=== PATIENT | female | born 1970 | race Caucasian/White ===

== ENCOUNTER 2021-02-11 09:05 | Emergency (ER) | payer MEDICARE, MEDICAID, SELFPAY ==
[2021-02-11] VITALS (17 sets, daily range): BP systolic 126–184; BP diastolic 53–97; PULSE 57–82; RESP 12–20; TEMP 36.5–36.6; O2SAT 76–99; BMI 38.9
--- NOTE | 2021-02-11 09:20 | PC.NURSE ---
SI PRECAUTIONS, SITTER AT BEDSIDE.
[2021-02-11 10:15] LABS: Basophils % 0.5 % (0.1-2.0); Eosinophils % 0.3 % (0.1-12.0); Neutrophils # 0.3 K/mm3 (1.8-7.8); Red Blood Count 5.24 M/mm3 (4.20-5.40); Red Cell Distribution Width 14.8 % (11.5-17.5)
[2021-02-11 10:22] LABS: Chloride 105 mmol/L (98-107); Potassium 3.6 mmoL/L (3.5-5.1); Sodium 137 mmol/L (136-145)
[2021-02-11 10:24] LABS: Blood Urea Nitrogen 11 mg/dl (7-17); Creatinine Clearance Estimated 179 mL/min (50-200); Estimated Glomerular Filt Rate 106 ml/min (>60); GFR (African American) 129 ML/MIN (>60)
[2021-02-11 10:25] LABS: Alanine Aminotransferase 29 U/L (12-78); Albumin Level 3.8 g/dl (3.5-5.0); Albumin/Globulin Ratio 1.1 (1.1-1.8); Alkaline Phosphatase 145 U/L (38-126); Anion Gap 9.6 mEq/L (5-15); Aspartate Amino Transferase 42 U/L (14-36); Bilirubin,Total 0.5 mg/dl (0.2-1.3); Carbon Dioxide 26 mmol/L (22.0-30.0); Globulin 3.6 g/dL (1.3-3.2); Glucose 127 mg/dl (74-100); Total Protein,Serum 7.4 g/dl (6.3-8.2)
[2021-02-11 10:34] LABS: Hematocrit 45.3 % (37.0-47.0); Lymphocytes # 2.3 K/mm3 (0.7-4.5); Lymphocytes % 33.1 % (10-50); Mean Corpuscular Hemoglobin 28.6 pg (27.0-31.2); Mean Corpuscular Volume 86.4 fl (81-99); Mean Platelet Volume 9.4 fl (7.4-10.4); Monocytes # 4.4 K/mm3 (0.1-1.0); Monocytes % 62.2 % (1.7-9.3); Platelet Count 184 K/mm3 (142-424)
[2021-02-11 10:36] LABS: MANUAL DIFFERENTIAL MANUAL DIFFERENTIAL (MANUAL DIFF); Neutrophils % 3.9 % (37.0-80.0)
[2021-02-11 10:41] LABS: Acetaminophen < 10 ug/ml (10-30); Salicylate < 1.0 mg/dL (2.0-20.0)
[2021-02-11 10:47] LABS: Eosinophils % 2 % (0-3); Lymphocytes % 22 % (10-50); Monocytes % 3 % (2-9); Neutrophils % 73 % (42-76); Platelet Estimate Normal; RBC Morphology Normal; Total Cells Counted 100
--- NOTE | 2021-02-11 10:54 | PC.NURSE ---
PT RESTING IN BED, PT APPEARS LESS AGITATED. INFORMED PT OF NEED OF URINE SAMPLE, SHE STATES SHE'S UNABLE TO GO RIGHT NOW.
--- NOTE | 2021-02-11 10:56 | [facility].EDPSYCH ---
ED Disposition Clinical Impression: Acute psychosis, Suicidal ideation Disposition: Home, Self-Care Condition on Discharge: Fair Referrals: Ivana Hess [Primary Care Provider] - - Critical Care Critical Care Time: No Attestation: On 02/11/21, the high probability of a clinically significant, sudden or life threatening deterioration of the following system(s) required my full and direct attention, intervention and personal management. The time I documented below is in addition to time spent performing reported procedures but includes the following listed in this critical care notation. Medical Decision Making - Umer Inquiry Pt receiving controlled substance: No Vital Signs: 02/11/21 09:06 02/11/21 09:31 02/11/21 09:53 Temperature 97.8 F Temperature Source Oral Pulse Rate 72 82 Pulse Rate [Right] 76 Respiratory Rate 18 20 20 Blood Pressure 164/90 H 162/96 H Blood Pressure [Right Arm] 144/87 H Blood Pressure Mean Blood Pressure Mean [Right Arm] 106 Blood Pressure Source Automatic Cuff Blood Pressure Position Sitting 02 Sat by Pulse Oximetry 97 93 L 97 Oxygen Delivery Method Room Air 02/11/21 10:01 02/11/21 10:27 02/11/21 10:50 Temperature Temperature Source Pulse Rate 69 77 75 Pulse Rate [Right] Respiratory Rate 18 16 15 Blood Pressure 184/97 H 155/78 H 131/75 Blood Pressure [Right Arm] Blood Pressure Mean 126 103 93 Blood Pressure Mean [Right Arm] Blood Pressure Source Blood Pressure Position 02 Sat by Pulse Oximetry 98 96 Oxygen Delivery Method 02/11/21 11:03 02/11/21 11:16 02/11/21 11:30 Temperature Temperature Source Pulse Rate 65 75 75 Pulse Rate [Right] Respiratory Rate 18 16 16 Blood Pressure 151/80 H 135/69 148/65 H Blood Pressure [Right Arm] Blood Pressure Mean 103 113 118 Blood Pressure Mean [Right Arm] Blood Pressure Source Blood Pressure Position 02 Sat by Pulse Oximetry 98 97 97 Oxygen Delivery Method 02/11/21 11:45 02/11/21 12:00 02/11/21 12:15 Temperature Temperature Source Pulse Rate 62 72 77 Pulse Rate [Right] Respiratory Rate 16 16 18 Blood Pressure 130/72 150/82 H 132/86 Blood Pressure [Right Arm] Blood Pressure Mean 91 104 107 Blood Pressure Mean [Right Arm] Blood Pressure Source Blood Pressure Position 02 Sat by Pulse Oximetry 96 96 96 Oxygen Delivery Method 02/11/21 12:30 02/11/21 12:45 02/11/21 12:48 Temperature 97.7 F Temperature Source Oral Pulse Rate 57 L 59 L Pulse Rate [Right] Respiratory Rate 16 16 Blood Pressure 126/53 L 130/72 Blood Pressure [Right Arm] Blood Pressure Mean 96 91 Blood Pressure Mean [Right Arm] Blood Pressure Source Blood Pressure Position 02 Sat by Pulse Oximetry 99 97 Oxygen Delivery Method 02/11/21 12:56 02/11/21 13:38 Temperature 97.7 F Temperature Source Oral Pulse Rate 68 63 Pulse Rate [Right] Respiratory Rate 16 12 Blood Pressure 130/72 178/76 H Blood Pressure [Right Arm] Blood Pressure Mean Blood Pressure Mean [Right Arm] Blood Pressure Source Automatic Cuff Blood Pressure Position Supine 02 Sat by Pulse Oximetry 76 L Oxygen Delivery Method Room Air - Lab Data Lab Results 02/11/21 10:00: WBC 7.0, RBC 5.24, Hgb 15.0, Hct 45.3, MCV 86.4, MCH 28.6, MCHC 33.0, RDW 14.8, Plt Count 184, MPV 9.4, Neut % (Auto) 3.9 L, Lymph % (Auto) 33.1, [place] % (Auto) 62.2 H, Eos % (Auto) 0.3, Baso % (Auto) 0.5, Neut # (Auto) 0.3 L*, Lymph # (Auto) 2.3, [place] # (Auto) 4.4 H, Eos # (Auto) 0.0, Baso # (Auto) 0.0, Total Counted 100, Neutrophils % (Manual) 73, Lymphocytes % (Manual) 22, Monocytes % (Manual) 3, Eosinophils % (Manual) 2, Differential Comment , Platelet Estimate Normal, RBC Morphology Normal 02/11/21 10:00: Sodium 137, Potassium 3.6, Chloride 105, Carbon Dioxide 26, Anion Gap 9.6, BUN 11, Creatinine 0.60, Estimated Creat Clear 179, Estimated GFR 106, Est GFR ( Amer) 12
[2021-02-11 11:02] LABS: Coronavirus 19, PCR Not Detected (NotDetected); Influenza A, PCR Not Detected (NotDetected); Influenza B, PCR Not Detected (NotDetected)
[2021-02-11 11:04] LABS: Microscopic, Urine URINE MICROSCOPIC (MICROSCOPIC)
[2021-02-11 11:15] LABS: Appearance,Urine CLEAR (Clear); Bilirubin,Urine Negative (Negative); Blood, Urine Negative (Negative); Color,Urine YELLOW (Yellow); Glucose,Urine (UA) Negative (Negative); Ketones,Urine Negative (Negative); Leukocyte Esterase,Urine Negative (Negative); Nitrate,Urine Negative (Negative); Protein,Urine Negative (Negative); Urobilinogen,Urine 0.2 EU/dl (0.2)
[2021-02-11 11:25] LABS: Barbiturates Screen,Urine Negative ng/ml (<200)
[2021-02-11 11:26] LABS: Amphetamine/Metha Screen,Urine Negative ng/ml (<1000); Benzodiazepines Screen,Urine Negative ng/ml (<200)
[2021-02-11 11:27] LABS: Amorphous Sediment,Urine 1+ /lpf; Cannabinoid Screen,Urine Negative ng/ml (<50); Mucus,Urine Trace /lpf; WBC,Urine Occasional #/hpf (0-3)
[2021-02-11 11:28] LABS: Cocaine Screen,Urine Negative ng/ml (<300); Methadone Screen,Urine Negative ng/ml (<300)
[2021-02-11 11:29] LABS: Opiate Screen,Urine Negative ng/ml (<300); Phencyclidine Screen,Urine Negative ng/ml (<25)
--- NOTE | 2021-02-11 11:59 | PC.NURSE ---
PT AGREEABLE TO GO TO [facility], PLAN OF CARE DISCUSSED WITH PT'S BROTHER RITA PER PT REQUEST. [facility] CALLED FOR TRANSPORT. PT SITTING UP IN BED & PROVIDED LUNCH TRAY.
--- NOTE | 2021-02-11 13:25 | PC.NURSE ---
PAPERWORK FAXED TO [employer].
--- NOTE | 2021-02-11 13:40 | PC.NURSE ---
PAPERWORK RECEIVED FROM JAMES RAJPUT ESCORTED OUT VIA [facility] AT THIS TIME.
== END 2021-02-11 13:41 | disposition home or self-care (01) ==
PROVIDERS: Emergency Provider Emergency Medicine; PCP Nurse Practitioner Family
DX: F23 Brief psychotic disorder (principal); R45.851 Suicidal ideations; S61.512A Laceration without foreign body of left wrist, initial encounter; X78.1XXA Intentional self-harm by knife, initial encounter; Y92.019 Unspecified place in single-family (private) house as the place of occurrence of the external cause; E11.9 Type 2 diabetes mellitus without complications; Z11.52 Encounter for screening for COVID-19; F31.9 Bipolar disorder, unspecified; Z20.822 Contact with and (suspected) exposure to COVID-19
CPT/HCPCS: 80053; 80305; 80329; 81001; 85007; 85025; 96372; 99284; U0003